=== PATIENT | female | born 1995 | race African-American/Black ===

== ENCOUNTER 2016-09-03 01:04 | Emergency (ER) | payer MEDICAID ==
[~2016-09-03] VITALS: Ht 170.2 cm; Wt 72.0 kg
[2016-09-03] MEDS ORDERED: KETOROLAC 60MG/2ML VIAL IM STA (01:41)
[2016-09-03 02:02] LABS: BASOPHILS % 0.6 % (0.0-2.0); EOSINOPHILS % 1.1 % (0.0-5.0); HEMATOCRIT. 38.8 % (36.0-48.0); HEMOGLOBIN. 13.4 g/dL (12.0-16.0); LYMPHOCYTES % 33.7 % (20.0-50.0); MEAN CORPUSCULAR HEMOGLOBIN 31.4 pg (28.0-32.0); MEAN CORPUSCULAR VOLUME 90.8 fL (81.0-99.0); MEAN PLATELET VOLUME 7.7 fl (7.4-10.4); MONOCYTES % 9.4 % (2.0-8.0); NEUTROPHILS % 55.2 % (40.0-76.0); PLATELET 195 x1000/uL (130-400); RED BLOOD CELL COUNT 4.27 mill/uL (4.2-5.4); RED CELL DISTRIBUTION WIDTH 12.7 % (11.6-14.6)
[2016-09-03 02:05] LABS: CHLORIDE 106 mEq/L (98-107)
[2016-09-03 02:17] LABS: CARBON DIOXIDE 25 mEq/L (21-32)
[2016-09-03 02:53] VITALS: BP 116/74
== END 2016-09-03 03:20 | disposition home or self-care (01) ==
LOC: ER 01:04
DX: R07.89 Other chest pain (principal)
CPT/HCPCS: 36415; 71010; 80053; 81025; 85025; 93005; 96372; 99285; J1885; Z7610